=== PATIENT | female | born 1960 | race Hispanic/Latino ===

== ENCOUNTER 2021-10-20 05:59 | Day surgery (SDC) | payer OTHER ==
[2021-10-18 14:11] LABS: APPEARANCE,URINE Clear (CLEAR); BILIRUBIN,URINE Negative (NEGATIVE); COLOR,URINE Yellow (YELLOW); GLUCOSE, URINE (UA) Negative (NEGATIVE); KETONES,URINE Negative (NEGATIVE); LEUKOCYTE ESTERASE ,URINE Negative (NEGATIVE); NITRATE,URINE Negative (NEGATIVE); OCCULT BLOOD,URINE Negative (NEGATIVE); PH,URINE 5.5 (5.0-8.0); PROTEIN,URINE Negative (NEGATIVE); UROBILINOGEN,URINE 0.2 mg/dL (0.2-1.0)
[2021-10-18 14:12] LABS: BASOPHILS % (AUTO) 0.5 % (0.0-5.0); EOSINOPHILS % (AUTO) 3.4 % (0.0-8.0); HEMATOCRIT 33.8 % (36-48); LYMPHOCYTES % (AUTO) 33.3 % (21.0-51.0); MEAN CORPUSCULAR HEMOGLOBIN 21.7 pg (27.0-33.0); MEAN CORPUSCULAR HGB CONC 30.5 g/dL (32.0-36.0); MEAN CORPUSCULAR VOLUME 71.3 fL (79-99); MONOCYTES % (AUTO) 11.3 % (3.0-13.0); NEUTROPHILS % (AUTO) 51.3 % (40.0-77.0); PLATELET COUNT (AUTO) 233 K/uL (130-400); RED BLOOD CELL COUNT(AUTO) 4.74 MIL/uL (4.00-5.50); RED CELL DISTRIBUTION WIDTH 15.8 % (11.0-15.5); WHITE BLOOD COUNT (AUTO) 6.1 K/uL (4.8-10.8)
[2021-10-18 14:27] LABS: CREATININE 0.5 mg/dL (0.5-1.5); POTASSIUM 3.1 mmol/L (3.5-5.1)
[2021-10-18 14:29] LABS: INR 0.99 (0.85-1.15); PROTHROMBIN TIME 10.8 SEC (9.6-11.6)
[2021-10-19 10:37] VITALS: BP 168/74
[2021-10-20] VITALS (11 sets, daily range): BP systolic 123–177; BP diastolic 66–82
[~2021-10-20] VITALS: Ht 162.6 cm; Wt 89.7 kg
[~2021-10-20 05:59] MED LIST: AEC81 PO; ALBU8.5H8 IH; CARB-37 PO; DILT180C86 PO; ESCI20TA38 PO; FEXO180T94 PO; MELA1TAB17 PO; PRIM50TA23 PO; ROPI2TAB7 PO; ROSU40TA21 PO; WIXELA IH
[2021-10-20] MEDS ORDERED: 0.9%NACL 1000ML 1,000 ML IV ONE (06:52)
[2021-10-20] MEDS ORDERED: LIDOCAINE HCL 400MG/20ML VIAL ONE (07:08)
[2021-10-20] MEDS ORDERED: IOHEXOL-350 50ML VIAL IV ONE (07:08)
[2021-10-20] MEDS ORDERED: BIVALIRUDIN 250 MG/VIAL IV ONE (07:08)
[2021-10-20] MEDS ORDERED: IOHEXOL 350 MG/ML 100ML INFUS..BTL IV ONE (07:08)
[2021-10-20] MEDS ORDERED: MEPERIDINE-PF 25 MG/ML SYG ONE (07:09)
[2021-10-20] MEDS ORDERED: NITROGLYCERIN 50MG VIAL ONE (07:09)
[2021-10-20] MEDS ORDERED: MIDAZOLAM HCL 1 MG/ML 2ML VIAL ONE (07:09)
[2021-10-20] MEDS ORDERED: FENTANYL CITRATE PF 50 MCG/1 ML 2ML VIAL ONE (07:10)
[2021-10-20] MEDS ORDERED: NITROGLYCERIN 0.4 MG SL TAB SL PRN (08:30)
[2021-10-20] MEDS ORDERED: DEXTROSE 50%-WATER 50 ML DISP.SYRIN IV PRN (08:30)
[2021-10-20] MEDS ORDERED: GLUCAGON 1MG KIT 1 MG ML IM PRN (08:30)
[2021-10-20] MEDS ORDERED: 0.9%NACL 1000ML 1,000 ML IV SCH (08:30)
[2021-10-20] MEDS ORDERED: METOPROLOL TARTRATE 1 MG/ML 5ML VIAL IV PRN (08:30)
== END 2021-10-20 13:45 | disposition home or self-care (01) ==
LOC: DAH 05:59
PROVIDERS: ATTEND Internal Medicine Cardiovascular Disease
DX: I20.0 Unstable angina (principal); I11.0 Hypertensive heart disease with heart failure; I50.32 Chronic diastolic (congestive) heart failure; J44.9 Chronic obstructive pulmonary disease, unspecified; F41.9 Anxiety disorder, unspecified; E66.9 Obesity, unspecified; F32.9 Major depressive disorder, single episode, unspecified; G20 Parkinson's disease; G25.81 Restless legs syndrome; I87.2 Venous insufficiency (chronic) (peripheral); E78.49 Other hyperlipidemia; M19.90 Unspecified osteoarthritis, unspecified site; Z79.82 Long term (current) use of aspirin; Z79.01 Long term (current) use of anticoagulants; Z79.899 Other long term (current) drug therapy; Z68.33 Body mass index [BMI] 33.0-33.9, adult; Z83.3 Family history of diabetes mellitus; Z82.49 Family history of ischemic heart disease and other diseases of the circulatory system
CPT/HCPCS: 36415 ×2; 71045; 80048; 81003; 82948 ×2; 84132; 85025; 85610; 85730; 93005; 93458; A4215; A4216; A4221; A4222; A4223 ×3; A4606; A4663; C1760; C1894 ×2; J1644; J2250; J3010; J3490 ×2; J7030; Q9965; Q9967 ×2; 99156; 99157; J0583; J2175

== ENCOUNTER → 2022-11-29 | Outpatient (CLI) | payer OTHER | END | disposition home or self-care (01) | LOC: RAH 07:24 | PROVIDERS: ATTEND Internal Medicine Gastroenterology | DX: R10.13 Epigastric pain (principal); R11.0 Nausea | CPT/HCPCS: 78264; A9541 ==

== ENCOUNTER → 2023-07-26 | Outpatient (CLI) | payer OTHER ==
[~2023-07-26] MED LIST changes: +DILT180C77 PO; -DILT180C86 PO; +IOHEXOL 350 MG/ML 100ML INFUS..BTL IV ONE; +ROPI2TAB53 PO; -ROPI2TAB7 PO
== END | disposition home or self-care (01) ==
LOC: RAH 10:46
PROVIDERS: ATTEND Internal Medicine Cardiovascular Disease
DX: I20.9 Angina pectoris, unspecified (principal)
CPT/HCPCS: 75574; Q9967